=== PATIENT | male | born 1965 | race Caucasian/White ===

== ENCOUNTER 2020-07-05 13:00 | Emergency (ER) | payer BC ==
[2020-07-05] MEDS ORDERED: ONDANSETRON 4 MG/2 ML VIAL IVPUSH ONE (13:34)
[2020-07-05] MEDS ORDERED: ACETAMINOPHEN 1000 MG/100 ML VIAL (NON FORMULARY) IVPB ONE (13:35)
[2020-07-05 13:36] VITALS: BP 166/90; PULSE 82; TEMP 98.6; BMI 25.0
[2020-07-05] MEDS ORDERED: SODIUM CHLORIDE 1,000 ML IV SCH (13:45)
[2020-07-05 14:03] LABS: EPITHELIAL CELLS RARE /hpf
[2020-07-05 14:04] LABS: CALCIUM OXALATE CRYSTALS MODERATE /hpf (NONE SEEN); URINE MUCUS 1+
[2020-07-05 14:16] LABS: ALBUMIN 4.6 g/dl (3.4-5.0); BASO % 0.8 % (0-2.0); BILIRUBIN,TOTAL 1.1 mg/dl (0.2-1); CALCIUM 9.3 mg/dl (8.5-10); CREATININE 1.1 mg/dl (0.55-1.3); EOS % 2.1 % (0-4.5); HEMATOCRIT 44.5 % (35.4-49); HEMOGLOBIN 15.1 GM/dl (11.7-16.9); LYMPH % 11.9 % (8-40); MCH 31.4 pg (25.7-33.7); MEAN CELL VOLUME 92.4 fl (80-96); MEAN PLT VOLUME 9.5 fl (7.5-11.1); MONO % 9.2 % (3.8-10.2); PLATELET COUNT 216 K/MM3 (134-434); POTASSIUM 4.4 mmol/L (3.5-5.1); RBC 4.81 M/mm3 (4.00-5.60); RDW 13.4 % (11.9-15.9); TOT PROT 7.4 g/dl (6.4-8.2); WHITE BLOOD COUNT 8.3 K/mm3 (4.0-10.8)
== END 2020-07-05 14:36 | disposition home or self-care (01) ==
LOC: FER 13:00
DX: R10.9 Unspecified abdominal pain (principal)
CPT/HCPCS: 36415; 80053; 81003; 81015; 85025; 87086; 99283-25